=== PATIENT | male | born 1980 ===

== ENCOUNTER 2022-01-07 13:17 | Emergency (ER) | payer OTHER ==
[2022-01-07] MEDS ORDERED: Iopamidol 612 MG/ML 100 ML Bottle IVPUSH ONE (13:48)
[2022-01-07 14:11] LABS: ANION GAP 10.5 mEq/L (7-13); CHLORIDE,CL 100 mmol/L (98-107); SODIUM,NA 135 mmol/L (136-145)
[2022-01-07] MEDS ORDERED: Ketorolac 30 MG/ML SDV IVPUSH ONE (16:14)
== END 2022-01-07 18:00 | disposition home or self-care (01) ==
LOC: DL.ED 13:17
DX: S70.11XA Contusion of right thigh, initial encounter (principal); S70.01XA Contusion of right hip, initial encounter; Z88.0 Allergy status to penicillin; V49.40XA Driver injured in collision with unspecified motor vehicles in traffic accident, initial encounter; Y92.410 Unspecified street and highway as the place of occurrence of the external cause
CPT/HCPCS: 36415; 70450; 71260; 72125; 72128; 72131; 74177; 80053; 81001; 82550; 83735; 85025; 85610; 96374; 99285; J1885; Q9967; 99284